=== PATIENT | female | born 1980 | race Caucasian/White ===

== ENCOUNTER 2020-04-12 11:52 | Inpatient (IN) | payer OTHER ==
[~2020-04-12] VITALS: Ht 147.3 cm; Wt 53.2 kg
--- NOTE | ~2020-04-12 | OP ---
[facility] [address] [place] [address] OPERATIVE REPORT Name: REFUGIO GUNDERSON Room: [address] M.R.#: [id number] Admission: 04/12/20 Attend Phys: Tl Ponce Discharge: Date of : 80 Report #: [id number] THIS REPORT FOR: //name// cc: Di Irene Jacquelyn FNP ~ CC: Di Ponce DATE OF SERVICE: 04/13/2020 PREOPERATIVE DIAGNOSIS: Acute appendicitis. POSTOPERATIVE DIAGNOSIS: Acute appendicitis. OPERATION: Laparoscopic appendectomy. SURGEON: Tl Ponce MD ANESTHESIA: General. ESTIMATED BLOOD LOSS: Minimal. SPECIMEN: Appendix. DESCRIPTION OF PROCEDURE: After informed consent was obtained, the patient was brought to the operating room and placed supine. SCDs were placed and working, preoperative antibiotics were administered, general anesthesia was induced. The abdomen was prepped and draped in the usual sterile fashion. A 10 mm incision was made below the umbilicus. Fascia was incised and a trocar was placed. Pneumoperitoneum was established. Right upper quadrant and left lower quadrant 5 mm ports were placed. The appendix was then grasped and retracted anteriorly. A window was made in the mesoappendix. The mesoappendix was ligated with a SUSHMA su load stapler. The base of the appendix was stapled off with a SUSHMA blue load stapler. It was then placed into an Endopouch and removed. The fascia was then closed with a [id number]-wrzsy 0 Vicryl. Skin was closed with 4-0 Monocryl. Incisions were sealed with Dermabond. COMPLICATIONS: None. DISPOSITION: The patient was taken to recovery in satisfactory condition. By: [id number] Ponce MD /nt
[2020-04-12 11:56] VITALS: BP 100/66
[2020-04-12] MEDS ORDERED: WELLBUTRIN SR150 MG PO (11:59)
[2020-04-12] MEDS ORDERED: ZYRTEC10 M5 PO (11:59)
[2020-04-12] MEDS ORDERED: ADDERALL XR 1515 MG PO (11:59)
[2020-04-12 13:07] LABS: URINE BILIRUBIN NEGATIVE (Negative); URINE BLOOD 3+ (Negative); URINE CLARITY CLEAR; URINE COLOR YELLOW; URINE GLUCOSE-RANDOM NEGATIVE (Negative); URINE KETONES NEGATIVE (Negative); URINE LEUKOCYTES-REFLEX 1+ (Negative); URINE NITRITE-REFLEX NEGATIVE (Negative); URINE PROTEIN NEGATIVE (Negative); URINE UROBILINOGEN 0.2 E.U./dl (0.2-1.0)
[2020-04-12 13:13] LABS: ABSOLUTE BASOPHILS 0.1 thou/uL (0.0-0.2); ABSOLUTE EOSINOPHILS 0.2 thou/uL (0.0-0.7); ABSOLUTE LYMPHOCYTES 1.9 thou/uL (0.8-5.3); ABSOLUTE MONOCYTES 0.6 thou/uL (0.0-1.2); ABSOLUTE NEUTROPHILS 6.8 thou/uL (1.6-8.1); BASOPHILS 0.6 %; EOSINOPHILS 2.1 %; HEMATOCRIT 39.3 % (37.0-47.0); HEMOGLOBIN 13.3 gm/dL (12.0-15.0); LYMPHOCYTES 20.3 %; MCHC 33.8 g/dL (28.0-37.0); MCV 97.8 fL (80.0-100.0); MONOCYTES 5.8 %; MPV 6.2 fl. (7.2-11.1); NUCLEATED RBCS 0 /100WBC; PLATELET COUNT* 322 thou/uL (150-400); POLYS 71.2 %; RBC 4.02 mil/uL (4.20-5.00); RDW-CV 11.9 % (10.5-14.5); WBC 9.6 thou/uL (4.0-11.0)
[2020-04-12 13:14] LABS: BACTERIA-REFLEX 1-9 Few /HPF (None Seen); CASTS None Seen /LPF (None Seen); CRYSTALS None Seen /LPF (None Seen); MUCUS None Seen strn/LPF (None Seen); SQUAMOUS 4-10 Moderate /LPF (0-3); URINE WBC-REFLEX 0-5 Rare /HPF (0-5)
[2020-04-12 13:26] LABS: CALCIUM 8.8 mg/dL (8.5-10.1); CREATININE 0.7 mg/dL (0.6-1.3); POTASSIUM 3.4 mmol/L (3.5-5.1)
[2020-04-12 13:30] LABS: TOTAL BILIRUBIN 0.7 mg/dL (<0.1-1.0); TOTAL PROTEIN 7.8 g/dL (6.4-8.2)
[2020-04-12 17:55] VITALS: BP 101/37
[2020-04-12 17:59] VITALS: BP 110/67
[2020-04-12] MEDS ORDERED: PROTONIX40 M2 PO (19:22)
[2020-04-12 21:00] VITALS: BP 116/65
[2020-04-13 00:59] VITALS: BP 110/67
[2020-04-13 08:15] VITALS: BP 104/52
[2020-04-13 20:00] VITALS: BP 96/61
[2020-04-14] VITALS: BP 91/52
[2020-04-14 04:42] VITALS: BP 92/50
[2020-04-14 07:30] VITALS: BP 97/66
== END 2020-04-14 09:00 | disposition home or self-care (01) | DRG 342 ==
LOC: M.ERS 11:52 → M.TBA-ER 16:43 → M.ORTHSURG 16:43
PROVIDERS: Physician Assistant; ADMIT Surgery; ATTEND Surgery
PROC: 0DTJ4ZZ Resection of Appendix, Percutaneous Endoscopic Approach (ICD-10-PCS; principal; 2020-04-13)
DX: K35.80 Unspecified acute appendicitis (principal); N39.0 Urinary tract infection, site not specified; K21.9 Gastro-esophageal reflux disease without esophagitis; Z20.828 Contact with and (suspected) exposure to other viral communicable diseases; Z79.899 Other long term (current) drug therapy; Z72.89 Other problems related to lifestyle; Z23 Encounter for immunization